=== PATIENT | male | born 1990 | race Caucasian/White ===

== ENCOUNTER 2017-10-25 22:11 | Emergency (ER) | payer OTHER ==
[~2017-10-25] VITALS: Ht 167.6 cm; Wt 74.8 kg
[~2017-10-25 22:11] MED LIST: ACET325; ALBU90OI INH; AMOCLA500 PO; AMOX500 PO; AMPDEX30CR PO; Amoxicillin500 MG PO; Amphetamine Sal30 MG PO; CODACE30 PO; CODGUAEL PO; HYDACE5 PO; HYDGUAL120 PO; IBUP600 PO; IBUP800; PERM5TC TOP; PROACE100 PO; PROCODE120 PO; PROM25 PO; Percocet 5-3251 EACH PO; RXCODACET PO; RXPROACE PO; SPACE CHAMBER1 EACH MC; Zofran4 MG PO
[2017-10-25] MEDS ORDERED: TRAZ50 (22:39)
[2017-10-26] MEDS ORDERED: CITRATE OF MAG296 ML PO (00:52)
[2017-10-26] MEDS ORDERED: BISA5EC PO (00:52)
== END 2017-10-26 01:05 | disposition home or self-care (01) ==
LOC: ER 22:11
DX: K59.00 Constipation, unspecified (principal); F17.210 Nicotine dependence, cigarettes, uncomplicated; Z91.038 Other insect allergy status; Z79.899 Other long term (current) drug therapy
CPT/HCPCS: 74018; 82272; 99283

== ENCOUNTER → 2018-01-01 | Outpatient (CLI) | payer OTHER ==
[~2018-01-01] MED LIST changes: +BISA5EC PO; +CITRATE OF MAG296 ML PO; +TRAZ50
== END ==
LOC: LAB SHORT 13:25 → LAB 13:25
DX: Z51.81 Encounter for therapeutic drug level monitoring (principal); Z79.899 Other long term (current) drug therapy
CPT/HCPCS: G0480

== ENCOUNTER 2018-10-12 15:46 | Emergency (ER) | payer OTHER ==
[~2018-10-12] VITALS: Ht 167.6 cm; Wt 61.2 kg
[~2018-10-12 15:46] MED LIST changes: +FAMO20 PO; +TRAZ100 PO; +ZIPR20 PO
[2018-10-13] MEDS ORDERED: CEPH500 PO (13:42)
[2018-10-13] MEDS ORDERED: Bactrim Ds Tab1 EACH PO (13:42)
== END 2018-10-12 16:29 | disposition left against medical advice (07) ==
LOC: ER 15:46
DX: L02.414 Cutaneous abscess of left upper limb (principal); Z53.20 Procedure and treatment not carried out because of patient's decision for unspecified reasons
CPT/HCPCS: 99282

== ENCOUNTER 2018-10-13 11:01 | Emergency (ER) | payer OTHER ==
[~2018-10-13] VITALS: Ht 162.6 cm; Wt 74.8 kg
[2018-10-13 12:32] LABS: BASOPHILS ABSOLUTE AUTO 0.06 K/mm3 (0.00-0.23); BASOPHILS PERCENT AUTO 1 % (0-2); EOSINOPHILS ABSOLUTE AUTO 0.03 K/mm3 (0.00-0.68); EOSINOPHILS PERCENT AUTO 0 % (0-6); Hematocrit 42.1 % (37.0-53.0); Hemoglobin 14.1 g/dL (13.5-17.5); IMMATURE GRAN ABSOLUTE AUTO 0.07 K/mm3 (0.00-0.10); IMMATURE GRAN PERCENT AUTO 1 % (0-1); LYMPHOCYTES PERCENT AUTO 9 % (21-46); MONOCYTES ABSOLUTE AUTO 1.24 K/mm3 (0.16-1.47); MONOCYTES PERCENT AUTO 12 % (4-13); Mean Corpuscular HGB 29.9 pg (26.0-34.0); Mean Corpuscular HGB Conc 33.5 g/dL (31.5-36.5); Mean Corpuscular Volume 89 fL (80-100); Mean Platelet Volume 10.2 fL (9.1-12.4); NEUTROPHILS PERCENT AUTO 78 % (41-73); Platelet Count 330 K/mm3 (150-400); RDW Coefficient Variation 12.8 % (11.7-14.2); RDW Standard Deviation 42.5 fL (35.1-46.3); Red Blood Cell Count 4.72 M/mm3 (4.30-5.90)
[2018-10-13 12:58] LABS: Alanine Aminotransfer (ALT/SGP 32 U/L (12-78); Albumin, Blood 3.2 g/dL (3.4-5.0); Albumin/Globulin Ratio 0.7 (0.8-1.8); Alk Phos 103 U/L (50-136); Anion Gap 7 mmol/L (6-16); Aspartate Aminotrans (AST/SGOT 22 U/L (12-37); Bilirubin, Total 0.2 mg/dL (0.1-1.0); Blood Urea Nitrogen 12 mg/dL (8-24); CO2, Blood 23 mmol/L (21-32); Calcium, Blood 9.3 mg/dL (8.5-10.1); Chloride, Blood 105 mmol/L (98-108); Creatinine, Blood 0.63 mg/dL (0.60-1.20); Globulin, Blood 4.9 g/dL (2.2-4.0); Glomerular Filtration Rate >60 (60-); Glucose, Blood 105 mg/dL (70-99); Potassium, Blood 4.5 mmol/L (3.5-5.5); Sodium, Blood 135 mmol/L (136-145); Total Protein, Blood 8.1 g/dL (6.4-8.2)
[2018-10-13] MEDS ORDERED: Bactrim Ds Tab1 EACH PO (13:42)
[2018-10-13] MEDS ORDERED: CEPH500 PO (13:42)
== END 2018-10-13 14:40 | disposition left against medical advice (07) ==
LOC: ER 11:01
PROVIDERS: Physician Assistant
DX: L02.414 Cutaneous abscess of left upper limb (principal); F19.10 Other psychoactive substance abuse, uncomplicated; Z91.030 Bee allergy status; Z79.899 Other long term (current) drug therapy; F17.210 Nicotine dependence, cigarettes, uncomplicated
CPT/HCPCS: 36415; 76882; 80053; 83605; 85025; 96365; 96367; 99284-25; J0690; J7060

== ENCOUNTER 2018-10-25 08:37 | Emergency (ER) | payer OTHER ==
[~2018-10-25 08:37] MED LIST changes: +Bactrim Ds Tab1 EACH PO; +CEPH500 PO
[2018-10-25] MEDS ORDERED: Doxycycline Hy100 MG PO (16:19)
[2018-10-25] MEDS ORDERED: BENZ100A PO (16:19)
== END 2018-10-25 10:19 | disposition left against medical advice (07) ==
LOC: ER 08:37
DX: Z53.21 Procedure and treatment not carried out due to patient leaving prior to being seen by health care provider (principal)

== ENCOUNTER 2018-10-25 10:36 | Emergency (ER) | payer OTHER ==
[~2018-10-25] VITALS: Ht 167.6 cm; Wt 63.5 kg
[2018-10-25 12:44] LABS: BASOPHILS ABSOLUTE AUTO 0.06 K/mm3 (0.00-0.23); BASOPHILS PERCENT AUTO 0 % (0-2); EOSINOPHILS PERCENT AUTO 1 % (0-6); Hematocrit 38.4 % (37.0-53.0); Hemoglobin 12.8 g/dL (13.5-17.5); IMMATURE GRAN ABSOLUTE AUTO 0.07 K/mm3 (0.00-0.10); IMMATURE GRAN PERCENT AUTO 0 % (0-1); LYMPHOCYTES ABSOLUTE AUTO 2.08 K/mm3 (0.84-5.20); LYMPHOCYTES PERCENT AUTO 13 % (21-46); MONOCYTES ABSOLUTE AUTO 1.06 K/mm3 (0.16-1.47); MONOCYTES PERCENT AUTO 7 % (4-13); Mean Corpuscular HGB Conc 33.3 g/dL (31.5-36.5); Mean Corpuscular Volume 90 fL (80-100); Mean Platelet Volume 10.1 fL (9.1-12.4); NEUTROPHILS ABSOLUTE AUTO 12.89 K/mm3 (1.96-9.15); NEUTROPHILS PERCENT AUTO 79 % (41-73); Platelet Count 371 K/mm3 (150-400); RDW Standard Deviation 42.3 fL (35.1-46.3); Red Blood Cell Count 4.26 M/mm3 (4.30-5.90); White Blood Cell Count 16.26 K/mm3 (4.00-11.30)
[2018-10-25 13:02] LABS: Alanine Aminotransfer (ALT/SGP 15 U/L (12-78); Albumin, Blood 3.3 g/dL (3.4-5.0); Albumin/Globulin Ratio 0.8 (0.8-1.8); Alk Phos 91 U/L (50-136); Anion Gap 5 mmol/L (6-16); Aspartate Aminotrans (AST/SGOT 11 U/L (12-37); Bilirubin, Total 0.3 mg/dL (0.1-1.0); Blood Urea Nitrogen 9 mg/dL (8-24); Bun/Creatinine Ratio 14.5 (12.0-20.0); CO2, Blood 29 mmol/L (21-32); Calcium, Blood 8.8 mg/dL (8.5-10.1); Chloride, Blood 105 mmol/L (98-108); Creatinine, Blood 0.62 mg/dL (0.60-1.20); Globulin, Blood 3.9 g/dL (2.2-4.0); Glomerular Filtration Rate >60 (60-); Glucose, Blood 101 mg/dL (70-99); Potassium, Blood 3.9 mmol/L (3.5-5.5); Sodium, Blood 139 mmol/L (136-145); Total Protein, Blood 7.2 g/dL (6.4-8.2)
[2018-10-25 13:05] LABS: International Normalized Ratio 0.93; Prothrombin Time Results 9.7 Sec (9.7-11.5)
[2018-10-25] MEDS ORDERED: Doxycycline Hy100 MG PO (16:19)
[2018-10-25] MEDS ORDERED: BENZ100A PO (16:19)
== END 2018-10-25 16:35 | disposition home or self-care (01) ==
LOC: ER 10:36
PROVIDERS: Physician Assistant
DX: L02.511 Cutaneous abscess of right hand (principal); R05 Cough; F17.210 Nicotine dependence, cigarettes, uncomplicated; Z51.81 Encounter for therapeutic drug level monitoring; Z91.038 Other insect allergy status
CPT/HCPCS: 36415; 71046; 73201; 80053; 83605; 85025; 85610; 85730; J0690; J1885; J7060; J7120; Q9967

== ENCOUNTER 2018-10-28 23:25 | Emergency (ER) | payer OTHER ==
[~2018-10-28 23:25] MED LIST changes: +BENZ100A PO; +Doxycycline Hy100 MG PO
== END 2018-10-28 23:50 | disposition left against medical advice (07) ==
LOC: ER 23:25
DX: Z53.21 Procedure and treatment not carried out due to patient leaving prior to being seen by health care provider (principal)

== ENCOUNTER 2019-01-08 17:07 | Emergency (ER) | payer MEDICARE, OTHER ==
[~2019-01-08] VITALS: Ht 167.6 cm; Wt 68.0 kg
[2019-01-08] MEDS ORDERED: KETO10 PO (17:53)
== END 2019-01-08 17:52 | disposition home or self-care (01) ==
LOC: ER 17:07
DX: R07.81 Pleurodynia (principal); Y04.8XXA Assault by other bodily force, initial encounter; Z91.030 Bee allergy status; F17.210 Nicotine dependence, cigarettes, uncomplicated
CPT/HCPCS: 71101; 99283-25

== ENCOUNTER 2019-01-10 06:17 | Emergency (ER) | payer MEDICARE, OTHER ==
[~2019-01-10] VITALS: Ht 162.6 cm; Wt 63.5 kg
[~2019-01-10 06:17] MED LIST changes: +KETO10 PO
[2019-01-10] MEDS ORDERED: IBUP800 PO (07:59)
== END 2019-01-10 08:09 | disposition home or self-care (01) ==
LOC: ER 06:17
DX: S93.402A Sprain of unspecified ligament of left ankle, initial encounter (principal); F17.210 Nicotine dependence, cigarettes, uncomplicated; Y93.39 Activity, other involving climbing, rappelling and jumping off
CPT/HCPCS: 73610; 73630; 99283-25

== ENCOUNTER 2019-01-14 15:58 | Inpatient (IN) | payer MEDICARE ==
[~2019-01-14] VITALS: Ht 167.6 cm; Wt 71.2 kg
[~2019-01-14 15:58] MED LIST changes: +IBUP800 PO
[2019-01-14 16:36] LABS: BASOPHILS ABSOLUTE AUTO 0.06 K/mm3 (0.00-0.23); BASOPHILS PERCENT AUTO 0 % (0-2); EOSINOPHILS PERCENT AUTO 2 % (0-6); Hematocrit 41.5 % (37.0-53.0); Hemoglobin 13.4 g/dL (13.5-17.5); IMMATURE GRAN ABSOLUTE AUTO 0.06 K/mm3 (0.00-0.10); IMMATURE GRAN PERCENT AUTO 0 % (0-1); LYMPHOCYTES ABSOLUTE AUTO 2.73 K/mm3 (0.84-5.20); LYMPHOCYTES PERCENT AUTO 17 % (21-46); MONOCYTES ABSOLUTE AUTO 1.34 K/mm3 (0.16-1.47); MONOCYTES PERCENT AUTO 8 % (4-13); Mean Corpuscular HGB 29.6 pg (26.0-34.0); Mean Corpuscular HGB Conc 32.3 g/dL (31.5-36.5); Mean Corpuscular Volume 92 fL (80-100); Mean Platelet Volume 10.5 fL (9.1-12.4); NEUTROPHILS ABSOLUTE AUTO 11.77 K/mm3 (1.96-9.15); NEUTROPHILS PERCENT AUTO 72 % (41-73); Platelet Count 248 K/mm3 (150-400); RDW Coefficient Variation 13.6 % (11.7-14.2); RDW Standard Deviation 45.8 fL (35.1-46.3); Red Blood Cell Count 4.53 M/mm3 (4.30-5.90); White Blood Cell Count 16.26 K/mm3 (4.00-11.30)
[2019-01-14 17:01] LABS: Alanine Aminotransfer (ALT/SGP 26 U/L (12-78); Albumin, Blood 3.5 g/dL (3.4-5.0); Alk Phos 96 U/L (50-136); Anion Gap 7 mmol/L (6-16); Aspartate Aminotrans (AST/SGOT 17 U/L (12-37); Bilirubin, Total 0.3 mg/dL (0.1-1.0); Blood Urea Nitrogen 8 mg/dL (8-24); Bun/Creatinine Ratio 11.1 (12.0-20.0); CO2, Blood 25 mmol/L (21-32); Calcium, Blood 8.5 mg/dL (8.5-10.1); Chloride, Blood 103 mmol/L (98-108); Creatinine, Blood 0.72 mg/dL (0.60-1.20); Globulin, Blood 3.6 g/dL (2.2-4.0); Glomerular Filtration Rate >60 (60-); Glucose, Blood 113 mg/dL (70-99); Potassium, Blood 3.7 mmol/L (3.5-5.5); Sodium, Blood 135 mmol/L (136-145); Total Protein, Blood 7.1 g/dL (6.4-8.2)
--- NOTE | 2019-01-15 06:26 | NUR ---
SHIFT SUMMARY PT ARRIVED TO ROOM APPROX 0 OR SO. INDEPENDENT IN ROOM A/O. WENT OUTSIDE A COUPLE TIMES. NO C/O PAIN IN L ARM. L ARM WOUND DRESSED. HE SLEPT T/O NIGHT. CALL LIGHT IN REACH.
--- NOTE | 2019-01-15 08:30 | NUR ---
PT PLEASANT TODAY. STATES PAIN IN L ARM AT I& D SITE. SOME EDEMA NOTED. H/R REG, NO MURMER NOTED. NO TELE. LUNGS CLEAR, RESP EASY, UNALBORED. ON R.A. BT X4 LAST BM YEST. VOIDS PER BATHROOM . INDEPENDANT GOES OUT TO SMOKE REGULARLY, BED IN LOW POSITION, CALL LITE IN REACH, CALLS APPROP
--- NOTE | 2019-01-15 14:28 | NUR ---
PT SLEEPING SINCE LUNCH. RESP EASY, UNLABORED. DID NOT AWAKEN. RE METHADONE. CALLED DR DE LA PAZ. OKAY TO MOVE TO PRN QID INSTEAD OF SCHEDULED. DONE
[2019-01-15 18:20] LABS: BASOPHILS ABSOLUTE AUTO 0.04 K/mm3 (0.00-0.23); BASOPHILS PERCENT AUTO 0 % (0-2); EOSINOPHILS ABSOLUTE AUTO 0.27 K/mm3 (0.00-0.68); EOSINOPHILS PERCENT AUTO 3 % (0-6); Hematocrit 41.7 % (37.0-53.0); Hemoglobin 13.2 g/dL (13.5-17.5); IMMATURE GRAN ABSOLUTE AUTO 0.04 K/mm3 (0.00-0.10); IMMATURE GRAN PERCENT AUTO 0 % (0-1); LYMPHOCYTES ABSOLUTE AUTO 1.82 K/mm3 (0.84-5.20); LYMPHOCYTES PERCENT AUTO 18 % (21-46); MONOCYTES ABSOLUTE AUTO 1.12 K/mm3 (0.16-1.47); MONOCYTES PERCENT AUTO 11 % (4-13); Mean Corpuscular HGB 29.7 pg (26.0-34.0); Mean Corpuscular HGB Conc 31.7 g/dL (31.5-36.5); Mean Corpuscular Volume 94 fL (80-100); Mean Platelet Volume 10.3 fL (9.1-12.4); NEUTROPHILS ABSOLUTE AUTO 6.92 K/mm3 (1.96-9.15); NEUTROPHILS PERCENT AUTO 68 % (41-73); Platelet Count 262 K/mm3 (150-400); RDW Coefficient Variation 13.6 % (11.7-14.2); RDW Standard Deviation 47.2 fL (35.1-46.3); Red Blood Cell Count 4.44 M/mm3 (4.30-5.90); White Blood Cell Count 10.21 K/mm3 (4.00-11.30)
[2019-01-15 18:35] LABS: Vancomycin, Trough 8.3 ug/mL (5.0-10.0)
[2019-01-15 18:37] LABS: Anion Gap 4 mmol/L (6-16); Blood Urea Nitrogen 7 mg/dL (8-24); Bun/Creatinine Ratio 11.7 (12.0-20.0); CO2, Blood 27 mmol/L (21-32); Calcium, Blood 8.5 mg/dL (8.5-10.1); Chloride, Blood 108 mmol/L (98-108); Glomerular Filtration Rate >60 (60-); Glucose, Blood 101 mg/dL (70-99); Potassium, Blood 3.7 mmol/L (3.5-5.5); Sodium, Blood 139 mmol/L (136-145)
--- NOTE | 2019-01-15 18:40 | NUR ---
PT PLEASANT TODAY, ALL EXCEPT FOR FIRST HOUR. AFTER THAT, HAS BEEN FINE. HAS BEEN OUT TO SMOKE NUMEROUS TIMES. HAS BEEN RESPECTFUL OF BEING HERE AND CALLING WHEN RETURNS. NO OTHER CONCERNS AT THIS TIME. BED IN LOW POSITION,C ALL LITES IN REACH, CALLS APORP
--- NOTE | 2019-01-16 06:09 | NUR ---
SHIFT SUMMARY PT A/O INDEPENDENT WENT OUTSIDE ONCE. REFUSED DRESSING CHANGE TO L ELBOW. HE SLEPT T/O NIGHT. NO METHADONE NEEDED. NO C/O PAIN.
--- NOTE | 2019-01-16 16:41 | NUR ---
PT IS A/OX3, PLEASANT AND COOPERATIVE, THE PT HAS BEEN UP SEVERAL TIMES TODAY TO GO OUTSIDE AND SMOKE, THE PT WAS UP INTO THE SHOWER TODAY, THE PT APPEARS TO BE BREATHING EASILY ON RA, THE PT REMOVED HIS WOUND DRESSING THIS AM, THE WOUND WAS CLEANED AND THE DRESSING WAS REPLACED USING A CLEAN TECHNIQUE, CALL LIGHT IN REACH, CIRA AT THE BEDSIDE AT THIS TIME
[2019-01-16 17:46] LABS: Vancomycin, Trough 9.6 ug/mL (5.0-10.0)
--- NOTE | 2019-01-16 19:22 | NUR ---
PT OUTSIDE TO SMOKE. NO COMPLAINTS AT THIS TIME.
--- NOTE | 2019-01-17 06:17 | NUR ---
SUMMARY: A/O, INDEPENDENT AND SPECIFIES NEEDS. METHADONE PRN RECIEVED FOR TOLERABLE CONTROL OF L.ARM AND L.LEG PAIN. PT REPORTS BREAKING L.FOOT PRIOR TO ADMIT AND WEARS BRACE AT TIMES. HE GOES OUTSIDE OFTEN TO SMOKE WA. IV ABX RECIVED FOR L.AC/ARM CELLULITIS AND DX REMAINS C/D/I. VSS/AFEBRILE, NO ACUTE CHANGES. LAUNDRY WAS DONE THIS SHIFT PER PT REQUEST AND HE REFUSED AM LABS AGAIN DESPITE ENCOURAGEMENT, WILL ENSURE DAY STAFF ARE AWARE. WCTM AND REPORT TO DAY RN.
[2019-01-17 10:36] LABS: BASOPHILS ABSOLUTE AUTO 0.06 K/mm3 (0.00-0.23); BASOPHILS PERCENT AUTO 1 % (0-2); EOSINOPHILS ABSOLUTE AUTO 0.21 K/mm3 (0.00-0.68); EOSINOPHILS PERCENT AUTO 2 % (0-6); Hematocrit 41.1 % (37.0-53.0); Hemoglobin 13.1 g/dL (13.5-17.5); IMMATURE GRAN ABSOLUTE AUTO 0.05 K/mm3 (0.00-0.10); IMMATURE GRAN PERCENT AUTO 1 % (0-1); LYMPHOCYTES PERCENT AUTO 18 % (21-46); MONOCYTES ABSOLUTE AUTO 0.84 K/mm3 (0.16-1.47); MONOCYTES PERCENT AUTO 9 % (4-13); Mean Corpuscular HGB 29.6 pg (26.0-34.0); Mean Corpuscular HGB Conc 31.9 g/dL (31.5-36.5); Mean Corpuscular Volume 93 fL (80-100); Mean Platelet Volume 10.1 fL (9.1-12.4); NEUTROPHILS PERCENT AUTO 70 % (41-73); Platelet Count 278 K/mm3 (150-400); RDW Coefficient Variation 13.4 % (11.7-14.2); RDW Standard Deviation 46.4 fL (35.1-46.3); Red Blood Cell Count 4.43 M/mm3 (4.30-5.90); White Blood Cell Count 9.76 K/mm3 (4.00-11.30)
[2019-01-17 10:49] LABS: Albumin, Blood 2.9 g/dL (3.4-5.0); Anion Gap 4 mmol/L (6-16); Blood Urea Nitrogen 10 mg/dL (8-24); Bun/Creatinine Ratio 14.1 (12.0-20.0); CO2, Blood 28 mmol/L (21-32); Calcium, Blood 8.4 mg/dL (8.5-10.1); Chloride, Blood 107 mmol/L (98-108); Creatinine, Blood 0.71 mg/dL (0.60-1.20); Glomerular Filtration Rate >60 (60-); Glucose, Blood 105 mg/dL (70-99); Phosphorus, Blood 3.3 mg/dL (2.5-4.9); Potassium, Blood 3.9 mmol/L (3.5-5.5); Sodium, Blood 139 mmol/L (136-145)
[2019-01-17] MEDS ORDERED: METH10 PO (11:20)
[2019-01-17] MEDS ORDERED: CEPH500 PO (12:23)
--- NOTE | 2019-01-17 12:52 | NUR ---
SUMMARY PT DISCHARGED, PT VERBALIZED UNDERSTANDING OF DISCHARGE INSTRUCTIONS, PT GIVEN A MONKEY TRAINER APPLICATION FOR THE HOSPITAL, PT ALSO GIVEN A NEW PATIENT PACKET FOR [facility], PT'S ARM DRESSING CHANGED, PT GIVEN EXTRA DRESSINGS, PT WAITING FOR HIS RIDE CURRENTLY
--- NOTE | 2019-01-17 13:47 | NUR ---
PT DECLINED A WHEELCHAIR AND WAS ABLE TO AMBULATE SAFELY TO THE ELEVATOR
== END 2019-01-17 13:21 | disposition home or self-care (01) | DRG 872 ==
LOC: ER 15:58 → MEDS 19:41 → ENPENDDIS 01-17 11:05 → MEDS 01-17 13:21
PROVIDERS: Physician Assistant; ADMIT Internal Medicine
PROC: 0H9EXZX Drainage of Left Lower Arm Skin, External Approach, Diagnostic (ICD-10-PCS; principal; 2019-01-14)
DX: A41.9 Sepsis, unspecified organism (principal); L03.114 Cellulitis of left upper limb; L02.414 Cutaneous abscess of left upper limb; F11.10 Opioid abuse, uncomplicated; F17.210 Nicotine dependence, cigarettes, uncomplicated
CPT/HCPCS: 10060; 36415; 80048; 80053; 80069; 80202; 83605; 85025; 87040; 87070; 87075; 87077; 87147; 87186; 87205; 96365-59; 96367-59; 99284-25; J0690; J1650; J1885; J3370; J7030

== ENCOUNTER 2019-02-17 19:00 | Emergency (ER) | payer MEDICARE ==
[~2019-02-17] VITALS: Ht 167.6 cm; Wt 65.8 kg
[~2019-02-17 19:00] MED LIST changes: +METH10 PO
[2019-02-17] MEDS ORDERED: HYDR1TAB94 PO (20:48)
== END 2019-02-17 20:57 | disposition home or self-care (01) ==
LOC: ER 19:00
DX: S92.355A Nondisplaced fracture of fifth metatarsal bone, left foot, initial encounter for closed fracture (principal); W17.89XA Other fall from one level to another, initial encounter; Z91.030 Bee allergy status; F17.210 Nicotine dependence, cigarettes, uncomplicated
CPT/HCPCS: 73630; 99283-25; A9270

== ENCOUNTER 2019-02-18 19:24 | Emergency (ER) | payer MEDICARE ==
[~2019-02-18] VITALS: Ht 175.3 cm; Wt 74.8 kg
[~2019-02-18 19:24] MED LIST changes: +HYDR1TAB94 PO
[2019-02-18 21:20] LABS: Creatinine, Blood 0.69 mg/dL (0.60-1.20)
== END 2019-02-18 22:20 | disposition home or self-care (01) ==
LOC: ER 19:24
PROVIDERS: Physician Assistant
DX: S92.355A Nondisplaced fracture of fifth metatarsal bone, left foot, initial encounter for closed fracture (principal); F17.210 Nicotine dependence, cigarettes, uncomplicated; X58.XXXA Exposure to other specified factors, initial encounter
CPT/HCPCS: 36415; 71046; 82565; 84520; 85379; 93005; 93010; 99283-25

== ENCOUNTER 2019-04-27 04:37 | Emergency (ER) | payer MEDICARE ==
[~2019-04-27] VITALS: Ht 170.2 cm; Wt 72.6 kg
== END 2019-04-27 07:24 | disposition home or self-care (01) ==
LOC: ER 04:37
DX: J40 Bronchitis, not specified as acute or chronic (principal); Z91.030 Bee allergy status; F17.210 Nicotine dependence, cigarettes, uncomplicated
CPT/HCPCS: 71046; 99283-25

== ENCOUNTER 2019-06-18 06:39 | Emergency (ER) | payer MEDICARE, OTHER ==
[~2019-06-18] VITALS: Ht 180.3 cm; Wt 68.0 kg
== END 2019-06-18 07:41 | disposition left against medical advice (07) ==
LOC: ER 06:39
DX: F11.10 Opioid abuse, uncomplicated (principal); Z91.030 Bee allergy status
CPT/HCPCS: 99284

== ENCOUNTER 2019-07-17 03:43 | Emergency (ER) | payer MEDICARE, OTHER ==
[~2019-07-17] VITALS: Ht 170.2 cm; Wt 61.2 kg
[2019-07-17] MEDS ORDERED: IBUP600 PO (04:58)
== END 2019-07-17 05:11 | disposition home or self-care (01) ==
LOC: ER 03:43
DX: S96.912A Strain of unspecified muscle and tendon at ankle and foot level, left foot, initial encounter (principal); X58.XXXA Exposure to other specified factors, initial encounter; Z91.030 Bee allergy status; F17.210 Nicotine dependence, cigarettes, uncomplicated
CPT/HCPCS: 73610; 99283-25; A9270-GY

== ENCOUNTER 2019-10-22 03:19 | Observation (INO) | payer MEDICARE, OTHER ==
[~2019-10-22] VITALS: Ht 167.6 cm; Wt 61.2 kg
[~2019-10-22 03:19] MED LIST changes: +AMPDEX5
[2019-10-22] MEDS ORDERED: METH40 (03:48)
[2019-10-22] MEDS ORDERED: TRAZ50 PO (03:48)
[2019-10-22 04:22] LABS: BASOPHILS ABSOLUTE AUTO 0.04 K/mm3 (0.00-0.23); BASOPHILS PERCENT AUTO 0 % (0-2); EOSINOPHILS ABSOLUTE AUTO 0.21 K/mm3 (0.00-0.68); EOSINOPHILS PERCENT AUTO 2 % (0-6); Hematocrit 41.9 % (37.0-53.0); Hemoglobin 14.1 g/dL (13.5-17.5); IMMATURE GRAN ABSOLUTE AUTO 0.05 K/mm3 (0.00-0.10); IMMATURE GRAN PERCENT AUTO 0 % (0-1); LYMPHOCYTES ABSOLUTE AUTO 3.11 K/mm3 (0.84-5.20); LYMPHOCYTES PERCENT AUTO 25 % (21-46); MONOCYTES ABSOLUTE AUTO 0.91 K/mm3 (0.16-1.47); MONOCYTES PERCENT AUTO 7 % (4-13); Mean Corpuscular HGB 31.1 pg (26.0-34.0); Mean Corpuscular HGB Conc 33.7 g/dL (31.5-36.5); Mean Corpuscular Volume 92 fL (80-100); Mean Platelet Volume 9.9 fL (9.1-12.4); NEUTROPHILS ABSOLUTE AUTO 7.98 K/mm3 (1.96-9.15); NEUTROPHILS PERCENT AUTO 65 % (41-73); Platelet Count 259 K/mm3 (150-400); RDW Coefficient Variation 13.1 % (11.7-14.2); Red Blood Cell Count 4.54 M/mm3 (4.30-5.90)
[2019-10-22 04:41] LABS: Alanine Aminotransfer (ALT/SGP 526 U/L (12-78); Albumin, Blood 3.2 g/dL (3.4-5.0); Alk Phos 116 U/L (50-136); Anion Gap 5 mmol/L (6-16); Aspartate Aminotrans (AST/SGOT 80 U/L (12-37); Bilirubin, Total 0.3 mg/dL (0.1-1.0); Blood Urea Nitrogen 8 mg/dL (8-24); Bun/Creatinine Ratio 11.1 (12.0-20.0); CO2, Blood 30 mmol/L (21-32); Calcium, Blood 8.6 mg/dL (8.5-10.1); Chloride, Blood 106 mmol/L (98-108); Creatinine, Blood 0.72 mg/dL (0.60-1.20); Ethanol (Alcohol), Blood, Med <3 mg/dL; Globulin, Blood 3.3 g/dL (2.2-4.0); Glomerular Filtration Rate >60 (60-); Glucose, Blood 107 mg/dL (70-99); Potassium, Blood 3.6 mmol/L (3.5-5.5); Salicylate <1.7 mg/dL (2.8-20.0); Sodium, Blood 141 mmol/L (136-145); Total Protein, Blood 6.5 g/dL (6.4-8.2)
[2019-10-22 04:48] LABS: Acetaminophen, Random <2.0 ug/mL (10.0-30.0)
[2019-10-22 08:49] LABS: U Amphetamine Screen Not Detected; U Barbituate Screen Not Detected; U Benzodiazapine Screen Not Detected; U Buprenorphine Screen Not Detected; U Cannabinoids Screen Not Detected; U Cocaine Screen Not Detected; U Methadone Screen Not Detected; U Methamphetamine Screen Not Detected; U Opiates Screen Not Detected; U Oxycodone Screen Not Detected; U Phencyclidine Screen Not Detected; U Propoxyphene Screen Not Detected
[2019-10-22 09:54] LABS: Alanine Aminotransfer (ALT/SGP 484 U/L (12-78); Albumin/Globulin Ratio 0.9 (0.8-1.8); Alk Phos 99 U/L (50-136); Anion Gap 4 mmol/L (6-16); Aspartate Aminotrans (AST/SGOT 78 U/L (12-37); Bilirubin, Total 0.2 mg/dL (0.1-1.0); Blood Urea Nitrogen 7 mg/dL (8-24); Bun/Creatinine Ratio 10.7 (12.0-20.0); CO2, Blood 29 mmol/L (21-32); Calcium, Blood 8.6 mg/dL (8.5-10.1); Chloride, Blood 108 mmol/L (98-108); Creatinine, Blood 0.65 mg/dL (0.60-1.20); Globulin, Blood 3.4 g/dL (2.2-4.0); Glomerular Filtration Rate >60 (60-); Glucose, Blood 91 mg/dL (70-99); Potassium, Blood 3.7 mmol/L (3.5-5.5); Sodium, Blood 141 mmol/L (136-145); Total Protein, Blood 6.4 g/dL (6.4-8.2)
[2019-10-24 04:06] LABS: HBSAG SCREEN Negative (Negative); HEP A AB, IGM Negative (Negative); HEP B CORE AB, IGM Negative (Negative); HEP C VIRUS AB >11.0 (0.0-0.9)
== END 2019-10-23 09:12 | disposition home or self-care (01) ==
LOC: ER 03:19 → EOR 03:20
PROVIDERS: Emergency Medicine; Psychiatry & Neurology Psychiatry; ADMIT Emergency Medicine
DX: T43.211A Poisoning by selective serotonin and norepinephrine reuptake inhibitors, accidental (unintentional), initial encounter (principal); F17.210 Nicotine dependence, cigarettes, uncomplicated; Z79.899 Other long term (current) drug therapy
CPT/HCPCS: 36415; 80053; 80074; 85025; 93005; 93010; 99285-25; G0480

== ENCOUNTER → 2020-04-16 | Outpatient (CLI) | payer MEDICARE, OTHER ==
[~2020-04-16] MED LIST changes: +METH40; +TRAZ50 PO
== END ==
LOC: LAB EV 12:04 → LAB SHORT 12:04
DX: J20.9 Acute bronchitis, unspecified (principal); Z20.828 Contact with and (suspected) exposure to other viral communicable diseases
CPT/HCPCS: U0003

== ENCOUNTER → 2021-01-02 | Outpatient (CLI) | payer MEDICARE, OTHER ==
[2021-01-02 17:54] LABS: BASOPHILS ABSOLUTE AUTO 0.05 K/mm3 (0.00-0.23); BASOPHILS PERCENT AUTO 1 % (0-2); EOSINOPHILS ABSOLUTE AUTO 0.12 K/mm3 (0.00-0.68); EOSINOPHILS PERCENT AUTO 1 % (0-6); Hematocrit 43.4 % (37.0-53.0); Hemoglobin 14.4 g/dL (13.5-17.5); IMMATURE GRAN ABSOLUTE AUTO 0.02 K/mm3 (0.00-0.10); IMMATURE GRAN PERCENT AUTO 0 % (0-1); LYMPHOCYTES ABSOLUTE AUTO 2.49 K/mm3 (0.84-5.20); LYMPHOCYTES PERCENT AUTO 29 % (21-46); MONOCYTES ABSOLUTE AUTO 0.63 K/mm3 (0.16-1.47); MONOCYTES PERCENT AUTO 7 % (4-13); Mean Corpuscular HGB Conc 33.2 g/dL (31.5-36.5); Mean Corpuscular Volume 94 fL (80-100); Mean Platelet Volume 11.4 fL (9.1-12.4); NEUTROPHILS ABSOLUTE AUTO 5.28 K/mm3 (1.96-9.15); NEUTROPHILS PERCENT AUTO 62 % (41-73); Platelet Count 210 K/mm3 (150-400); RDW Coefficient Variation 12.6 % (11.7-14.2); RDW Standard Deviation 43.8 fL (35.1-46.3); Red Blood Cell Count 4.64 M/mm3 (4.30-5.90); White Blood Cell Count 8.59 K/mm3 (4.00-11.30)
[2021-01-02 18:16] LABS: Alanine Aminotransfer (ALT/SGP 26 U/L (12-78); Albumin, Blood 3.9 g/dL (3.4-5.0); Alk Phos 102 U/L (50-136); Anion Gap 4 mmol/L (6-16); Aspartate Aminotrans (AST/SGOT 20 U/L (12-37); Bilirubin, Total 0.5 mg/dL (0.1-1.0); Blood Urea Nitrogen 12 mg/dL (8-24); CO2, Blood 25 mmol/L (21-32); Calcium, Blood 9.3 mg/dL (8.5-10.1); Chloride, Blood 108 mmol/L (98-108); Creatinine, Blood 0.86 mg/dL (0.60-1.20); Globulin, Blood 3.9 g/dL (2.2-4.0); Glomerular Filtration Rate >60 (60-); Glucose, Blood 90 mg/dL (70-99); Potassium, Blood 4.3 mmol/L (3.5-5.5); Sodium, Blood 137 mmol/L (136-145); Total Protein, Blood 7.8 g/dL (6.4-8.2); Uric Acid, Blood 5.4 mg/dL (3.5-7.2)
== END | disposition home or self-care (01) ==
LOC: LAB 11:00 → LAB SHORT 11:00
PROVIDERS: Nurse Practitioner
DX: G56.03 Carpal tunnel syndrome, bilateral upper limbs (principal); R22.33 Localized swelling, mass and lump, upper limb, bilateral
CPT/HCPCS: 80053; 84443; 84550; 85025; 86430

== ENCOUNTER → 2021-04-04 | Outpatient (CLI) | payer MEDICARE, OTHER ==
[2021-04-04 18:52] LABS: Bilirubin, Urine Neg (Neg); Blood, Urine Neg (Neg); Glucose Qualitative, Urine Neg (Neg); Ketones, Urine Neg (Neg); Leukocyte Esterase, Urine 1+ (Neg); Nitrite, Urine Neg (Neg); Protein, Urine 1+ (Neg); Specific Gravity, Urine 1.025 (1.003-1.022); Urobilinogen, Urine NORM (Normal)
[2021-04-04 19:08] LABS: Appearance, Urine Cloudy (Clear); Color, Urine Yellow (P-Yellow); Red Blood Cells, Urine Not Seen /hpf (0-2); White Blood Cells, Urine Rare /hpf (0-5)
[2021-04-04 19:09] LABS: Amorphous Heavy (0-Heavy); Bacteria Not Seen /hpf; Squamous Epithelial Cells Not Seen /hpf (Few)
[2021-04-06 03:08] LABS: CHLAMYDIA TRACHOMATIS, NAA Negative (Negative)
== END | disposition home or self-care (01) ==
LOC: LAB SHORT 12:00
PROVIDERS: Student in an Organized Health Care Education/Training Program
DX: R30.9 Painful micturition, unspecified (principal)
CPT/HCPCS: 81001; 87086; 87491; 87591

== ENCOUNTER 2021-06-25 08:12 | Day surgery (SDC) | payer MEDICARE, OTHER ==
[~2021-06-25] VITALS: Ht 167.6 cm; Wt 99.0 kg
[~2021-06-25 08:12] MED LIST changes: +DOCU100 PO; -METH40; +METH40 PO; +Methadone In10 MG/ML PO; +OMEP20ER PO
--- NOTE | 2021-06-25 13:37 | NUR ---
Discharge instructions reviewed with patient. Patient verbalizes understanding. Copy given to patient to take home. Dressing to procedure site clean, dry, intact with no visible drainage, swelling, erythema or bruising noted.
--- NOTE | 2021-06-25 13:51 | NUR ---
Discharged via wheelchair to private car for ride home.
== END 2021-06-25 13:51 | disposition home or self-care (01) ==
LOC: ORSCMMR 08:12 → ORD 09:30 → ORSCMMR 09:30
PROVIDERS: Surgery
PROC: 0YU50JZ Supplement Right Inguinal Region with Synthetic Substitute, Open Approach (ICD-10-PCS; principal; 2021-06-25 09:30)
DX: K40.90 Unilateral inguinal hernia, without obstruction or gangrene, not specified as recurrent (principal); F17.210 Nicotine dependence, cigarettes, uncomplicated; K21.9 Gastro-esophageal reflux disease without esophagitis; Z79.899 Other long term (current) drug therapy; E66.9 Obesity, unspecified; Z68.35 Body mass index [BMI] 35.0-35.9, adult
CPT/HCPCS: C1781; J0690; J1100; J1885; J2250; J2405; J2704; J3010; J7120